=== PATIENT | female | born 2000 | race African-American/Black ===

== ENCOUNTER 2021-03-10 15:14 | Emergency (ER) | payer MEDICAID ==
[~2021-03-10] VITALS: Ht 160 cm; Wt 68.0 kg
[2021-03-10 15:22] VITALS: BP 125/79
[2021-03-10] MEDS ORDERED: ACETAMINOPHEN 325MG TABLET PO PRN (18:15)
[2021-03-10] MEDS ORDERED: ONDANSETRON 4MG ODT PO ONE (18:15)
[2021-03-10 18:45] LABS: BASOPHILS % 0.6 % (0.0-2.0); EOSINOPHILS % 0.3 % (0.0-5.0); HEMATOCRIT. 32.5 % (36.0-48.0); HEMOGLOBIN. 10.2 g/dL (12.0-16.0); LYMPHOCYTES % 16.3 % (20.0-50.0); MEAN CORPUSCULAR HEMOGLOBIN 19.6 pg (28.0-32.0); MEAN CORPUSCULAR VOLUME 62.5 fL (81.0-99.0); MEAN PLATELET VOLUME 7.7 fl (7.4-10.4); MONOCYTES % 6.6 % (2.0-8.0); NEUTROPHILS % 76.2 % (40.0-76.0); PLATELET 397 x1000/uL (130-400); RED CELL DISTRIBUTION WIDTH 19.9 % (11.6-14.6)
[2021-03-10 18:49] LABS: CHLORIDE 102 mEq/L (98-107)
[2021-03-10 19:16] LABS: B-HCG QUANTITATIVE 147975 mIU/mL (<3)
[2021-03-10 19:29] LABS: PLATELET ESTIMATE NORMAL
[2021-03-10 20:13] LABS: CLARITY URINE CLEAR (CLEAR); COLOR URINE YELLOW (YELLOW); KETONES URINE 4+ (NEGATIVE); LEUKOCYTE ESTERASE URINE 1+ (NEGATIVE); NITRITE URINE NEGATIVE (NEGATIVE); OCCULT BLOOD URINE NEGATIVE (NEGATIVE); PH URINE 5.5 (4.5-8.0); PROTEIN URINE NEGATIVE (NEGATIVE); SPECIFIC GRAVITY URINE 1.023 (1.005-1.030); UROBILINOGEN URINE 0.2 E.U./dL (0.2-1.0)
[2021-03-10] MEDS ORDERED: ONDA4TAB5 MT (21:08)
== END 2021-03-10 21:21 | disposition home or self-care (01) ==
LOC: ER 15:14
DX: O21.0 Mild hyperemesis gravidarum (principal); Z3A.13 13 weeks gestation of pregnancy
CPT/HCPCS: 36415; 76801; 80053; 81003; 81025; 84702; 85025; 99284; Q0162

== ENCOUNTER 2021-06-13 03:37 | Emergency (ER) | payer MEDICAID ==
[~2021-06-13] VITALS: Ht 162.6 cm; Wt 81.0 kg
[~2021-06-13 03:37] MED LIST: ONDA4TAB5 MT
[2021-06-13] MEDS ORDERED: ACETAMINOPHEN 500MG TABLET PO ONE (04:15)
[2021-06-13 04:56] LABS: BASOPHILS % 0.4 % (0.0-2.0); EOSINOPHILS % 0.7 % (0.0-5.0); HEMATOCRIT. 29.8 % (36.0-48.0); HEMOGLOBIN. 9.7 g/dL (12.0-16.0); LYMPHOCYTES % 13.8 % (20.0-50.0); MEAN CORPUSCULAR HEMOGLOBIN 21.3 pg (28.0-32.0); MEAN CORPUSCULAR VOLUME 65.4 fL (81.0-99.0); MEAN PLATELET VOLUME 7.5 fl (7.4-10.4); NEUTROPHILS % 76.1 % (40.0-76.0); PLATELET 331 x1000/uL (130-400); RED BLOOD CELL COUNT 4.56 mill/uL (4.2-5.4); RED CELL DISTRIBUTION WIDTH 18.8 % (11.6-14.6)
[2021-06-13 05:03] LABS: CLARITY URINE CLEAR (CLEAR); COLOR URINE YELLOW (YELLOW); KETONES URINE NEGATIVE (NEGATIVE); LEUKOCYTE ESTERASE URINE 3+ (NEGATIVE); NITRITE URINE NEGATIVE (NEGATIVE); OCCULT BLOOD URINE NEGATIVE (NEGATIVE); PH URINE 7.5 (4.5-8.0); PROTEIN URINE NEGATIVE (NEGATIVE); SPECIFIC GRAVITY URINE 1.014 (1.005-1.030); UROBILINOGEN URINE 0.2 E.U./dL (0.2-1.0)
[2021-06-13 05:04] LABS: CHLORIDE 107 mEq/L (98-107)
[2021-06-13] MEDS ORDERED: NITR-87 MT (05:41)
[2021-06-13] MEDS ORDERED: TOPUD MT (05:41)
[2021-06-13 05:46] LABS: PLATELET ESTIMATE NORMAL
[2021-06-13 05:53] VITALS: BP 118/67
== END 2021-06-13 05:55 | disposition home or self-care (01) ==
LOC: ER 03:37
DX: O23.42 Unspecified infection of urinary tract in pregnancy, second trimester (principal); N39.0 Urinary tract infection, site not specified; O98.512 Other viral diseases complicating pregnancy, second trimester; Z20.822 Contact with and (suspected) exposure to COVID-19; O99.512 Diseases of the respiratory system complicating pregnancy, second trimester; J98.8 Other specified respiratory disorders; Z3A.25 25 weeks gestation of pregnancy
CPT/HCPCS: 36415; 71045; 76805; 80053; 81003; 81025; 84484; 85025; 87426; 93005; 99285

== ENCOUNTER 2024-03-11 20:10 | Emergency (ER) | payer MEDICAID, OTHER ==
[~2024-03-11] VITALS: Ht 165.1 cm; Wt 75.0 kg
[~2024-03-11 20:10] MED LIST changes: +FERR-63 PO; +IBUP-2030 PO; +NITR-87 MT; +TOPUD MT
[2024-03-11 20:45] VITALS: O2SAT 100
[2024-03-11] MEDS ORDERED: AMOX-494 MT (20:54)
[2024-03-11 21:06] VITALS: BP 117/78; PULSE 78; RESP 18; TEMP 36.78072; O2SAT 100
== END 2024-03-11 21:07 | disposition home or self-care (01) ==
LOC: ER 20:10
DX: H66.93 Otitis media, unspecified, bilateral (principal)
CPT/HCPCS: 99283

== ENCOUNTER 2024-07-16 00:28 | Emergency (ER) | payer MEDICAID, OTHER ==
[~2024-07-16] VITALS: Ht 160 cm; Wt 77.7 kg
[~2024-07-16 00:28] MED LIST changes: +AMOX-494 MT
[2024-07-16 00:52] VITALS: O2SAT 100
[2024-07-16 02:25] VITALS: BP 120/70; PULSE 84; RESP 18; TEMP 37; O2SAT 100
== END 2024-07-16 02:27 | disposition home or self-care (01) ==
LOC: ER 00:28
DX: T18.9XXA Foreign body of alimentary tract, part unspecified, initial encounter (principal); Z79.899 Other long term (current) drug therapy; W44.9XXA Unspecified foreign body entering into or through a natural orifice, initial encounter; Y93.89 Activity, other specified; Y92.89 Other specified places as the place of occurrence of the external cause; Y99.8 Other external cause status
CPT/HCPCS: 70360; 71045; 74018; 99284